=== PATIENT | female | born 1980 | race African-American/Black ===

== ENCOUNTER 2017-02-24 12:02 | Emergency (ER) | payer OTHER ==
[2017-02-24 12:32] VITALS: BP 114/73; PULSE 71; TEMP 98.9; BMI 34.6
--- NOTE | 2017-02-24 13:28 | PDOC ---
History of Present Illness - General Chief Complaint: Pain Stated Complaint: PAIN Time Seen by Provider: 02/24/17 13:03 - History of Present Illness Initial Comments: 02/24/17 13:06 He is a 36-year-old female , who presents to emergency department today complaining of right hip pain. Patient states that she's had this hip pain for approximately 1 month now. She had her last child approximately 3 months ago. Patient states that while walking up stairs she gets a sharp pain. She is concerned that there is something wrong with her hip and would like an x-ray at this time. Denies balance issues, gait change, weakness in the leg, numbness, tingling. Past History - Past Medical History Allergies/Adverse Reactions: Allergies Allergy/AdvReac Type Severity Reaction Status Date / Time No Known Allergies Allergy Verified 02/24/17 12:30 Home Medications: Ambulatory Orders NK [No Known Home Medication] 02/24/17 - Psycho/Social/Smoking Cessation Hx Suicidal Ideation: No Smoking History: Current every day smoker Number of Cigarettes Smoked Daily: 1 Information on smoking cessation initiated: No Review of Systems - Review of Systems Able to Perform ROS?: Yes Is the patient limited Czech proficient: No Constitutional: No: Chills, Fever, Weakness Musculoskeletal: Yes: Joint Pain (R hip), Joint Stiffness (R hip). No: Muscle Pain, Muscle Weakness Neurological: No: Numbness, Tingling, Weakness, Unsteady Gait *Physical Exam - Vital Signs Last Vital Signs Temp Pulse Resp BP Pulse Ox 98.9 F 71 18 114/73 98 02/24/17 12:30 02/24/17 12:30 02/24/17 12:30 02/24/17 12:30 02/24/17 12:30 - Physical Exam General Appearance: Yes: Nourished, Appropriately Dressed. No: Apparent Distress Vascular Pulses: Dorsalis-Pedis (R): 2+, Doralis-Pedis (L): 2+ Extremity: positive: Normal Capillary Refill, Normal Inspection, Normal Range of Motion, Tender (Tender to palpation of the right hip. The tenderness does not extend into the groin region.). negative: Other (Negative Angel's test.) Integumentary: positive: Normal Color, Dry, Warm. 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 Patient states that this pain has been going on for approximately 1 month now and would like an x-ray at this time will x-ray her right hip to rule out fracture or any other pathology. Most likely diagnosis is possible tendinitis. We'll refer to orthopedic doctor. 02/24/17 15:26 Patient states that she cannot wait for her x-ray results. She has to get to a doctor's appointment for one of her children. Patient needs to leave and states she does not want to wait. 02/24/17 15:58 Pt. wants to leave. Signing out AMA. X-ray results are not back at this time. Patient states that she will call to find out the results of her imaging. *DC/Admit/Observation/Transfer Diagnosis at time of Disposition: AMA - Signed out against medical advice - Discharge Dispostion Disposition: AGAINST MEDICAL ADVICE - Referrals Referrals: Chase Sy MD [Primary Care Provider] -
[2017-02-24 14:54] LABS: URINE APPEARANCE CLEAR; URINE BILIRUBIN NEGATIVE (NEGATIVE); URINE COLOR LTYELLOW; URINE GLUCOSE (UA) NEGATIVE (NEGATIVE); URINE KETONE NEGATIVE (NEGATIVE); URINE LEUK ESTERASE NEGATIVE (NEGATIVE); URINE NITRITE NEGATIVE (NEGATIVE); URINE PROTEIN NEGATIVE (NEGATIVE); URINE UROBILINOGEN NEGATIVE E.U./dl (0.2-1.0)
[2017-02-24 15:11] LABS: URINE BLOOD 1+ (NEGATIVE)
[2017-02-24 15:12] LABS: URINE RBC 1 /hpf (0-3)
== END 2017-02-24 16:32 | disposition left against medical advice (07) ==
LOC: JERFT 12:02
DX: M25.551 Pain in right hip (principal)
CPT/HCPCS: 73523-TC; 81003; 81015; 84703; 99281-25

== ENCOUNTER 2017-09-22 01:22 | Emergency (ER) | payer OTHER ==
[2017-09-22 01:48] VITALS: BP 122/66; PULSE 75; TEMP 98.6; BMI 31.3
--- NOTE | 2017-09-22 02:41 | PDOC ---
History of Present Illness - General Chief Complaint: Chest Pain Stated Complaint: PAIN Time Seen by Provider: 09/22/17 02:37 History Source: Patient - History of Present Illness Initial Comments: 09/22/17 02:52 37 year old female with chest pain worse with movement. patient reports picking up daughter unsure of pulling muscle. denies cough, chest congestion, NVD, abdominal pain. denies pmhx Past History - Past Medical History Allergies/Adverse Reactions: Allergies Allergy/AdvReac Type Severity Reaction Status Date / Time No Known Allergies Allergy Verified 09/22/17 01:45 Home Medications: Ambulatory Orders Ibuprofen [Motrin -] 600 mg PO QID PRN #21 tablet 09/22/17 COPD: No - Suicide/Smoking/Psychosocial Hx Smoking History: Current some day smoker Number of Cigarettes Smoked Daily: 3 Information on smoking cessation initiated: No Hx Alcohol Use: No Drug/Substance Use Hx: No Review of Systems - Review of Systems Able to Perform ROS?: Yes Is the patient limited Telugu proficient: No Constitutional: No: Symptoms Reported, See HPI, Chills, Diaphoresis, Fever, Loss of Appetite, Malaise, Night Sweats, Weakness, Weight Stable, Unintentional Wgt. Loss, Unexplained wgt Loss, Other HEENTM: No: Symptoms Reported, See HPI, Eye Pain, Blurred Vision, Tearing, Recent change in vision, Double Vision, Cataracts, Ear Pain, Ocular Prothesis, Ear Discharge, Nose Pain, Nose Congestion, Tinnitus, Nose Bleeding, Hearing Loss , Throat Pain, Throat Swelling, Mouth Pain, Dental Problems, Difficulty Swallowing, Mouth Swelling, Other Respiratory: No: Symptoms reported, See HPI, Cough, Orthopnea, Shortness of Breath, SOB with Exertion, SOB at Rest, Stridor, Wheezing, Productive cough, Hemoptysis, Other Cardiac (ROS): Yes: Chest Pain. No: Symptoms Reported, See HPI, Edema, Irregular Heart Rate, Lightheadedness, Palpitations, Syncope, Chest Tightness, Other ABD/GI: No: Symptoms Reported, See HPI, Abdominal Distended, Abd. Pain w/ defecation, Blood Streaked Bowels, Constipated, Diarrhea, Difficulty Swallowing , Nausea, Poor Appetite, Poor Fluid Intake, Rectal Bleeding, Vomiting, Indigestion, Abdominal cramping, Tarry Stools, Other *Physical Exam - Vital Signs Last Vital Signs Temp Pulse Resp BP Pulse Ox 98.6 F 75 14 122/66 99 09/22/17 01:45 09/22/17 01:45 09/22/17 01:45 09/22/17 01:45 09/22/17 01:45 - Physical Exam General Appearance: Yes: Appropriately Dressed Respiratory/Chest: positive: Chest Tender (anterior chest tender to touch), Lungs Clear, Normal Breath Sounds Cardiovascular: positive: Regular Rhythm, Regular Rate Gastrointestinal/Abdominal: positive: Normal Bowel Sounds, Soft Extremity: positive: Normal Capillary Refill, Normal Range of Motion Integumentary: positive: Normal Color, Dry, Warm Neurologic: positive: Fully Oriented ED Treatment Course - RADIOLOGY Radiology Studies Ordered: Category Date Time Status CHEST PA & LAT [RAD] Stat Radiology 09/22/17 02:51 Taken - Medications Given in the ED: ED Medications Discontinued Medications Generic Name Dose Route Start Last Admin Trade Name Freq PRN Reason Stop Dose Admin Ibuprofen 800 mg 09/22/17 02:51 09/22/17 03:07 Motrin - PO 09/22/17 02:52 800 mg ONCE ONE Administration *DC/Admit/Observation/Transfer Diagnosis at time of Disposition: Chest pain, musculoskeletal - Discharge Dispostion Disposition: HOME - Prescriptions Prescriptions: Ibuprofen [Motrin -] 600 mg PO QID PRN #21 tablet PRN Reason: Pain - Referrals Referrals: STAFF,NOT ON [Primary Care Provider] - - Patient Instructions Printed Discharge Instructions: DI for Chest Pain Additional Instructions: take ibuprofen every 6 hours as needed for pain follow up with your doctor as soon as possible. return to the ER if symptoms worsen. - Post Discharge Activity
[2017-09-22] MEDS ORDERED: IBUPROFEN 400 MG TABLET (FP) PO ONE ×3 (02:51→02:57)
== END 2017-09-22 04:42 | disposition home or self-care (01) ==
LOC: JER 01:22
DX: R07.89 Other chest pain (principal)
CPT/HCPCS: 71046-TC; 99282-25

== ENCOUNTER 2017-10-29 09:23 | Emergency (ER) | payer OTHER ==
[2017-10-29 09:29] VITALS: BP 136/82; PULSE 95; TEMP 98.4; BMI 30.7
--- NOTE | 2017-10-29 10:28 | PDOC ---
History of Present Illness - General Chief Complaint: Respiratory Stated Complaint: cough, sore throat Time Seen by Provider: 10/29/17 09:59 History Source: Patient Exam Limitations: No Limitations - History of Present Illness Initial Comments: 10/29/17 10:23 Patient is a 37-year-old female, no significant medical history currently on no medication reports moist productive cough, sputum days. Tactile temperature. No nausea vomiting or diarrhea. Past Medical History: [Denies]. Allergies: No known allergies Medications: None] Family History: Non-contributory Social History: Denies smoking, alcohol use, or IVDU Review of Systems GENERAL/CONSTITUTIONAL: [No fever or chills. No weakness. No weight change.] HEAD, EYES, EARS, NOSE AND THROAT: [No change in vision. No ear pain or discharge. No sore throat. ] CARDIOVASCULAR: [No chest pain or shortness of breath.] RESPIRATORY: [Moist cough, wheezing, or hemoptysis.] GASTROINTESTINAL: [No nausea, vomiting, diarrhea or constipation. No rectal bleeding.] GENITOURINARY: [No dysuria, frequency, or change in urination.] MUSCULOSKELETAL: [No joint or muscle swelling or pain. No neck or back pain.] SKIN AND BREASTS: [No rash or easy bruising.] NEUROLOGIC: [No headache, vertigo, loss of consciousness, or loss of sensation.] PSYCHIATRIC: [No depression or anxiety.] ENDOCRINE: [No increased thirst. No abnormal weight change.] HEMATOLOGIC/LYMPHATIC: [No anemia, easy bleeding, or history of blood clots.] ALLERGIC/IMMUNOLOGIC: [No hives or skin allergy. No latex allergy.] Physical Exam: GENERAL: [The patient is awake, alert, and fully oriented, in no acute distress. ] EYES: [Pupils equal, round and reactive to light, extraocular movements intact, sclera anicteric, conjunctiva clear.] ENT: [Ears normal, nares patent, oropharynx clear without exudates. Moist mucous membranes. No uvula deviation] NECK: [Normal range of motion, supple without lymphadenopathy, JVD, or masses.] LUNGS: [Breath sounds are equal, rhonchi , no wheezing. No crackles] HEART: [Regular rate and rhythm, normal S1 and S2 without murmur, rub or gallop. ] ABDOMEN: [Soft, nontender, normoactive bowel sounds. No guarding, no rebound. No masses. No bruising or abrasions] MUSCULOSKELETAL: [Normal range of motion, no edema. No clubbing or cyanosis. No cords, erythema, or tenderness. No CVA Tenderness with fist.] NEUROLOGICAL: [Cranial nerves II through XII grossly intact. Normal speech, normal gait.] SKIN: [Warm, Dry, normal turgor, no rashes or lesions noted.] Past History - Past Medical History Allergies/Adverse Reactions: Allergies Allergy/AdvReac Type Severity Reaction Status Date / Time No Known Allergies Allergy Verified 10/29/17 10:20 Home Medications: Ambulatory Orders Ibuprofen [Motrin -] 600 mg PO QID PRN #21 tablet 09/22/17 Albuterol Sulfate Inhaler - [Ventolin HFA Inhaler -] 1 - 2 inh PO Q4H #1 inhaler 10/29/17 Azithromycin [Zithromax 250mg Tablets -] 250 mg PO UTDICT #6 tab 10/29/17 COPD: No - Immunization History Immunization Up to Date: Yes - Suicide/Smoking/Psychosocial Hx Smoking History: Current some day smoker Number of Cigarettes Smoked Daily: 5 Information on smoking cessation initiated: No Hx Alcohol Use: No Drug/Substance Use Hx: No *Physical Exam - Vital Signs Last Vital Signs Temp Pulse Resp BP Pulse Ox 98.4 F 95 H 18 136/82 99 10/29/17 09:26 10/29/17 09:26 10/29/17 09:26 10/29/17 09:26 10/29/17 09:26 Medical Decision Making - Medical Decision Making 10/29/17 10:26 A/P : Patient with cough, tactile fever, rhonchi bilateral. Wuill DC on albuterol inhaler, azithromycin. Follow up with PMD if fever, or cough persists. *DC/Admit/Observation/Transfer Diagnosis at time of Disposition: Cough - Discharge Dispostion Condition at time of disposition: Stable Admit: No - Prescriptions Prescriptions: Albuterol Sulfate Inhaler - [Ventolin HFA Inhaler -] 1 - 2 inh PO Q4H #1 inhaler Azithromycin [Zithromax 250mg Tablets -] 250 mg PO UTDICT #6 tab - Referrals - Patient Instructions Printed Discharge Instructions: DI for Acute Bronchitis Additional Instructions: Keep head of bed elevated 45 when sleeping Albuterol every 4 hours as needed Cool air humidifier at night Motrin for fever greater than 101 Followup in the primary care doctor's office in 2 days for evaluation. If any respiratory distress, increased cough, inability to drink, increased wheezing please return immediately to emergency department. - Post Discharge Activity Forms/Work/School Notes: Back to Work
== END 2017-10-29 10:48 | disposition home or self-care (01) ==
LOC: JERFT 09:23 → JER 09:23
DX: J20.9 Acute bronchitis, unspecified (principal)
CPT/HCPCS: 99282-25

== ENCOUNTER 2018-12-14 22:14 | Emergency (ER) | payer OTHER ==
[2018-12-14 22:25] VITALS: BP 106/76; PULSE 75; TEMP 98.4
[2018-12-14] MEDS ORDERED: ACETAMINOPHEN 650 MG/20.3 ML ORAL SOLUTION (CUPS) PO ONE (23:06)
--- NOTE | 2018-12-14 23:29 | PDOC ---
History of Present Illness - General Chief Complaint: Chest Pain Stated Complaint: CHEST PAIN Time Seen by Provider: 12/14/18 22:46 History Source: Patient Exam Limitations: No Limitations - History of Present Illness Initial Comments: 12/14/18 23:24 38 yo female pmh current smoker (3 cigarettes per day) presents to the ED for non exertional right sided CP. 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 Pain is non exertional, non radiating, made worse with movement of right arm and palpation to right upper chest, denies back pain, SOB, diaphoresis, N/V/F/C, arm numbness/weakness, calf tenderness, recent travel, fx of heart disease. Past History - Past Medical History Allergies/Adverse Reactions: Allergies Allergy/AdvReac Type Severity Reaction Status Date / Time No Known Allergies Allergy Verified 12/14/18 22:25 Home Medications: Ambulatory Orders Ibuprofen [Motrin -] 600 mg PO QID PRN #21 tablet 09/22/17 Albuterol Sulfate Inhaler - [Ventolin Hfa Inhaler -] 1 - 2 inh PO Q4H #1 inhaler 10/29/17 Azithromycin [Zithromax 250mg Tablets -] 250 mg PO UTDICT #6 tab 10/29/17 Azithromycin [Zithromax 250mg Tablets -] 250 mg PO UTDICT #6 tab 10/29/17 COPD: No - Immunization History Immunization Up to Date: Yes - Suicide/Smoking/Psychosocial Hx Smoking History: Current some day smoker Have you smoked in the past 12 months: Yes Number of Cigarettes Smoked Daily: 3 Information on smoking cessation initiated: No Hx Alcohol Use: No Drug/Substance Use Hx: No Review of Systems - Review of Systems Constitutional: No: Chills, Fever Respiratory: No: Shortness of Breath Cardiac (ROS): Yes: Chest Pain. No: Edema, Lightheadedness, Palpitations ABD/GI: No: Constipated, Diarrhea, Nausea, Vomiting Musculoskeletal: No: Back Pain Integumentary: No: Rash Neurological: No: Numbness, Tingling, Weakness *Physical Exam - Vital Signs Last Vital Signs Temp Pulse Resp BP Pulse Ox 98.4 F 75 18 106/76 99 12/14/18 22:22 12/14/18 22:22 12/14/18 22:22 12/14/18 22:22 12/14/18 22:22 - Physical Exam General Appearance: Yes: Nourished, Appropriately Dressed. No: Apparent Distress HEENT: positive: EOMI Neck: positive: Supple. negative: Carotid bruit, Tender lateral, Tender midline Respiratory/Chest: positive: Lungs Clear, Normal Breath Sounds. negative: Accessory Muscle Use, Rapid RR, Crackles, Rales, Rhonchi, Stridor, Wheezing Cardiovascular: positive: Regular Rhythm, Regular Rate, S1, S2, Other ( reprodicible CP with palpation over right pec minor and with ROM of right arm). negative: Edema, JVD, Murmur Vascular Pulses: Dorsalis-Pedis (R): 4+, Doralis-Pedis (L): 4+ Gastrointestinal/Abdominal: positive: Flat, Soft. negative: Pulsatile Mass, Distended, Guarding, Rebound, Tenderness Musculoskeletal: positive: Normal Inspection. negative: CVA Tenderness Extremity: positive: Normal Capillary Refill, Normal Inspection, Normal Range of Motion Integumentary: positive: Normal Color, Dry, Warm Neurologic: positive: Fully Oriented, Alert, Normal Mood/Affect, Normal Response , Motor Strength 5/5 Medical Decision Making - Medical Decision Making 38 yo female pmh current smoker (3 cigarettes per day) presents to the ED for non exertional right sided CP. 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 Pain is non exertional, non radiating, made worse with movement of right arm and palpation to right upper chest, denies back pain, SOB, diaphoresis, N/V/F/C, arm numbness/weakness, calf tenderness, recent travel, fx of heart disease. vitals wnl AOX3, NAD, non toxic appearing CP reproducible with palpation to right pec minor and with increased ROM in overhead motion right arm Preg test neg EKG NSR without ST changes CXR negative for acute path or fractures Given Motrin which relieved pain Pt presented 1 year ago with similar symptoms, found to be MSK pain which is likely the diagnosis today as well PT is safe for DC home with PCP f/u and strict return precautions *DC/Admit/Observation/Transfer Diagnosis at time of Disposition: Chest pain Qualifiers: Chest pain type: unspecified Qualified Code(s): R07.9 - Chest pain, unspecified - Discharge Dispostion Disposition: HOME Condition at time of disposition: Good Decision to Admit order: No - Referrals Referrals: [facility] – [place], [place] [facility] [place] [Provider Group] - Patient Instructions Printed Discharge Instructions: DI for Atypical Chest Pain, DI for Muscle Strain Additional Instructions: Please see the primary doctor referred to you within the next 48 hours. Rest and ice/heat the right arm and pectoral region for the next 3-5 days along with over the counter NSAID medication for pain relief. Return to the ER for new or concerning symptoms including but not limited to: severe chest pain, numbness with weakness into your arm, high fevers. Thank you - Post Discharge Activity
[2018-12-14] MEDS ORDERED: ACETAMINOPHEN 325 MG TABLET (FP) ONE (23:37)
--- NOTE | 2018-12-14 23:48 | PDOC ---
Attending Attestation - HPI HPI: The patient is a 38 year old female (current smoker- 3 cigarettes per day), with no significant PMH, who presents to the emergency department today complaining of right-sided chest wall pain for one day. Patient notes she began feeling the chest pain approximately one hour to arrival. 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 Pain is exacerbated with moving the neck and when applying pressure to the right upper extremity. Patient denies any breast pain or discharge from the nipples. The patient denies chest pain, shortness of breath, headache and dizziness. Denies fever, chills, nausea, vomit, diarrhea and constipation. Denies dysuria, frequency, urgency and hematuria. Allergies: NKA Past surgical history: None reported Social history: Current smoker (3 cigarettes per day) 12/15/18 00:16 - Physicial Exam PE: GENERAL: Awake, alert, and fully oriented, in no acute distress HEAD: No signs of trauma EYES: PERRLA, EOMI, sclera anicteric, conjunctiva clear ENT: Auricles normal inspection, hearing grossly normal, nares patent, oropharynx clear without exudates. Moist mucosa NECK: Normal ROM, supple, no lymphadenopathy, JVD, or masses CHEST: +Reproducible right chest wall tenderness. LUNGS: Breath sounds equal, clear to auscultation bilaterally. No wheezes, and no crackles HEART: Regular rate and rhythm, normal S1 and S2, no murmurs, rubs or gallops ABDOMEN: Soft, nontender, normoactive bowel sounds. No guarding, no rebound. No masses EXTREMITIES: +Ranging right arm reproduces pain. +Pushing on right chest wall reproduces pain. Full range of motion, no edema. No clubbing or cyanosis. No cords, erythema. NEUROLOGICAL: Cranial nerves II through XII grossly intact. Normal speech, normal gait SKIN: Warm, Dry, normal turgor, no rashes or lesions noted. 12/15/18 00:16 - Medical Decision Making Documentation prepared by SONYA Babb, acting as medical appointment clerk for Corrie Armando DO. 12/15/18 00:16 <Kassy Vaca - Last Filed: 12/15/18 00:16> - Resident Resident Name: William Gonzalez - ED Attending Attestation I have performed the following: I have examined & evaluated the patient, The case was reviewed & discussed with the resident, I agree w/resident's findings & plan, Exceptions are as noted - Medical Decision Making 12/14/18 23:48 I, Dr. Corrie Armando, DO, attest that this document has been prepared under my direction and personally reviewed by me in its entirety. I further attest, that it accurately reflects all work, treatment, procedures and medical decision -making performed by me. 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
[2018-12-15] MEDS ORDERED: IBUPROFEN 600 MG TABLET (FP) PO ONE ×2 (00:08→00:11)
--- NOTE | 2018-12-15 11:57 | EKG ---
Test Reason : Blood Pressure : / mmHG Vent. Rate : 059 BPM Atrial Rate : 059 BPM P-R Int : 164 ms QRS Dur : 080 ms QT Int : 398 ms P-R-T Axes : 069 026 037 degrees QTc Int : 394 ms SINUS BRADYCARDIA WITH SINUS ARRHYTHMIA POSSIBLE LEFT ATRIAL ENLARGEMENT BORDERLINE ECG NO PREVIOUS ECGS AVAILABLE Confirmed by MILAD SUMNER, EARL ([id number]) on 12/15/2018 11:57:34 AM Referred By: Confirmed By:EARL STINSON MD
== END 2018-12-15 01:47 | disposition home or self-care (01) ==
LOC: JER 22:14
DX: R07.9 Chest pain, unspecified (principal)
CPT/HCPCS: 71046-TC-FY; 84703; 93005; 93010; 99282-25

== ENCOUNTER 2019-02-19 12:24 | Emergency (ER) | payer OTHER ==
[2019-02-19 12:41] VITALS: BP 108/60; PULSE 70; TEMP 98.1; BMI 25.0
[2019-02-19] MEDS ORDERED: AZITHROMYCIN 250 MG TABLET PO ONE (13:45)
--- NOTE | 2019-02-19 13:50 | PDOC ---
History of Present Illness - General Chief Complaint: Pain Stated Complaint: Wants STD testing Time Seen by Provider: 02/19/19 13:41 - History of Present Illness Initial Comments: 02/19/19 13:49 38-year-old female presents for evaluation of concern of a broken condom with a new sexual partner. Sexual encounter occurred about 48 hours ago. She is concerned about gonorrhea and chlamydia. Past History - Past Medical History Allergies/Adverse Reactions: Allergies Allergy/AdvReac Type Severity Reaction Status Date / Time No Known Allergies Allergy Verified 02/19/19 12:41 Home Medications: Ambulatory Orders NK [No Known Home Medication] 02/19/19 COPD: No - Immunization History Immunization Up to Date: Yes - Suicide/Smoking/Psychosocial Hx Smoking History: Never smoked Have you smoked in the past 12 months: Yes Number of Cigarettes Smoked Daily: 3 Information on smoking cessation initiated: No Hx Alcohol Use: No Drug/Substance Use Hx: No Review of Systems - Review of Systems Constitutional: No: Fever : No: Dysuria, Discharge *Physical Exam - Vital Signs Last Vital Signs Temp Pulse Resp BP Pulse Ox 98.1 F 70 18 108/60 100 02/19/19 12:38 02/19/19 12:38 02/19/19 12:38 02/19/19 12:38 02/19/19 12:38 - Physical Exam Comments: 02/19/19 13:49 HEAD: NC/AT EYES: Conjuntiva clear MS: Full ROM in all joints without edema NEUROLOGIC: No gross sensory or motor deficits, NVID SKIN: Normal color and temperature no lesions or rashes Medical Decision Making - Medical Decision Making 02/19/19 13:48 Treatment options discussed. Patient wants to be treated for gonorrhea and chlamydia. She refused HIV testing and prophylactic treatment she also wants to be tested for syphilis. [facility] follow-up referral given. *DC/Admit/Observation/Transfer Diagnosis at time of Disposition: Possible exposure to STD - Discharge Dispostion Disposition: HOME Condition at time of disposition: Stable Decision to Admit order: No - Referrals Referrals: [facility] [Provider Group] - Patient Instructions Printed Discharge Instructions: Chlamydia: The Silent STD, How to Detect and Treat STDs, Facts About Sexually Transmitted Infections Additional Instructions: Today he was treated for gonorrhea and chlamydia. He refused HIV testing. Your also tested for syphilis as well as gonorrhea and chlamydia. Return to the emergency room should he have any further issues he may follow-up with the [facility] for further evaluation and treatment. Should any of your results be positive we will call you. You refused HIV testing and prophylactic treatment. - Post Discharge Activity
[2019-02-19] MEDS ORDERED: AZITHROMYCIN 500 MG TABLET ONE (13:56)
== END 2019-02-19 14:13 | disposition home or self-care (01) ==
LOC: JERFT 12:24
DX: Z20.2 Contact with and (suspected) exposure to infections with a predominantly sexual mode of transmission (principal); Z11.3 Encounter for screening for infections with a predominantly sexual mode of transmission
CPT/HCPCS: 36415; 86593; 87491; 87591; 96372; 99281-25

== ENCOUNTER 2019-11-05 16:45 | Emergency (ER) | payer OTHER ==
[2019-11-05 17:02] VITALS: BP 123/72; PULSE 90; TEMP 99.9; BMI 34.8
--- NOTE | 2019-11-05 18:18 | PDOC ---
History of Present Illness - General Chief Complaint: Cold Symptoms Stated Complaint: CHEST PAIN,HEADACHE Time Seen by Provider: 11/05/19 17:26 History Source: Patient Exam Limitations: Clinical Condition - History of Present Illness Initial Comments: 11/05/19 18:15 Patient presented complaining of 2-day history of persisting cough, nasal congestion, midsternal chest pain from coughing, tactile fevers, chills and body aches. Patient reported taking vydp-fah-didsrsz cough medication from the [employer] [facility] without improvement. Denies recent travel or sick contact. Patient has not taken anything for fevers. Patient requests she just need pain medication and go home Is this a multiple visit Asthma Patient?: No Timing/Duration: other (2 days) Past History - Past Medical History Allergies/Adverse Reactions: Allergies Allergy/AdvReac Type Severity Reaction Status Date / Time No Known Allergies Allergy Verified 11/05/19 17:02 Home Medications: Ambulatory Orders Benzonatate [Tessalon Pearls -] 100 mg PO Q8H PRN #21 capsule 11/05/19 Ipratropium [place] 2 spray NS BID PRN 5 Days #1 spray 11/05/19 Methylprednisolone [Medrol Dose Carlos] 4 mg PO ASDIR #21 tablet 11/05/19 COPD: No - Immunization History Immunization Up to Date: Yes - Psycho Social/Smoking Cessation Hx Smoking History: Never smoked Have you smoked in the past 12 months: Yes Number of Cigarettes Smoked Daily: 3 Hx Alcohol Use: No Drug/Substance Use Hx: No Review of Systems - Review of Systems Able to Perform ROS?: Yes Is the patient limited Tajik proficient: No Constitutional: Yes: Chills, Fever (tactile fever), Malaise HEENTM: Yes: Symptoms Reported, See HPI, Nose Congestion. No: Eye Pain, Blurred Vision, Tearing, Recent change in vision, Double Vision, Cataracts, Ear Pain, Ocular Prothesis, Ear Discharge, Nose Pain, Tinnitus, Nose Bleeding, Hearing Loss, Throat Pain, Throat Swelling, Mouth Pain, Dental Problems, Difficulty Swallowing, Mouth Swelling, Other Respiratory: Yes: Symptoms reported, See HPI, Cough. No: Orthopnea, Shortness of Breath, SOB with Exertion, SOB at Rest, Stridor, Wheezing, Productive cough, Hemoptysis, Other Cardiac (ROS): Yes: Symptoms Reported, See HPI, Chest Pain (mid-sternal chest pain from cough). No: Edema, Irregular Heart Rate, Lightheadedness, Palpitations, Syncope, Chest Tightness, Other ABD/GI: No: Symptoms Reported, Nausea, Vomiting All Other Systems: Reviewed and Negative *Physical Exam - Vital Signs Last Vital Signs Temp Pulse Resp BP Pulse Ox 99.9 F H 90 18 123/72 100 11/05/19 17:00 11/05/19 17:00 11/05/19 17:00 11/05/19 17:00 11/05/19 17:00 - Physical Exam 11/05/19 18:14 GENERAL: Well developed, well nourished. Awake and alert. No acute distress. HEENT: Normocephalic, atraumatic. PERRLA, EOMI. No conjunctival pallor. Sclera are non-icteric. Moist mucous membranes. Oropharynx is clear. NECK: Supple. Full ROM. CARDIOVASCULAR: Moderate reproducible midsternal chest wall pain. Regular rate and rhythm. No murmurs, rubs, or gallops. Distal pulses are 2+ and symmetric. PULMONARY: No evidence of respiratory distress. Lungs clear to auscultation bilaterally. No wheezing, rales or rhonchi. ABDOMINAL: Soft. Non-tender. Non-distended. No rebound or guarding. No organomegaly. Normoactive bowel sounds. MUSCULOSKELETAL Normal range of motion at all joints. SKIN: Warm and dry. Normal capillary refill. No rashes. No jaundice. No cyanosis NEUROLOGICAL: Alert, awake, appropriate. Gait is normal without ataxia. PSYCHIATRIC: Cooperative. Good eye contact. Appropriate mood General Appearance: Yes: Nourished, Appropriately Dressed. No: Apparent Distress ED Treatment Course - RADIOLOGY Radiology Studies Ordered: Category Date Time Status CHEST PA & LAT [RAD] Stat Radiology 11/05/19 18:06 Taken Medical Decision Making - Medical Decision Making 11/05/19 18:17 Patient presented complaining of 2-day history of persisting cough, nasal congestion, midsternal chest pain from coughing, tactile fevers, chills and body aches. Patient reported taking gqky-ikd-[id number] cough medication from the [facility] without improvement. Denies recent travel or sick contact. Patient has not taken anything for fevers. Patient requests she just need pain medication and go home Exam significant for moderate reproducible midsternal chest wall tenderness with normal cardio and lung exam. Patient very hysterical and coughing throughout exam and report chest pain while coughing. Patient afebrile. Symptoms likely viral URI with costochondritis from cough. EKG done shows normal sinus rhythm. Chest x-ray ordered to rule out acute chest pathology 11/05/19 18:51 Chest x-ray shows no acute abnormality. Toradol 30 mg IM ordered for costochondritis. Patient stable for discharge on Tessalon [place] as needed for cough and Atrovent nasal spray for congestion will add Medrol pack for anti- inflammatory effect to help with costochondritis with strict follow-up Discharge - Discharge Information Problems reviewed: Yes Clinical Impression/Diagnosis: Cough, Costochondral chest pain, URI with cough and congestion Condition: Stable Disposition: HOME - Admission No - Additional Discharge Information Prescriptions: Benzonatate [Tessalon Pearls -] 100 mg PO Q8H PRN #21 capsule PRN Reason: Cough Ipratropium [place] 2 spray NS BID PRN 5 Days #1 spray PRN Reason: nasal congestion Methylprednisolone [Medrol Dose [place]] 4 mg PO ASDIR #21 tablet - Follow up/Referral Referrals: Chase Sy MD [Primary Care Provider] - - Patient Discharge Instructions Patient Printed Discharge Instructions: DI for Viral Upper Respiratory Infection -- Adult Additional Instructions: Your symptoms likely from upper respiratory infection. Your EKG and chest x- ray was normal. Your chest pain is likely from chest wall pain from coughing. Take prescribed medication as prescribed for cough and congestion. Increase fluid intake. Come back to emergency room if worsening chest pain with shortness of breath and weakness - Post Discharge Activity
[2019-11-05] MEDS ORDERED: KETOROLAC TROMETHAMINE 30 MG/1 ML VIAL IM ONE (18:21)
[2019-11-05] MEDS ORDERED: KETOROLAC TROMETHAMINE 30 MG/1 ML VIAL ONE (18:29)
--- NOTE | 2019-11-06 09:40 | EKG ---
Test Reason : Blood Pressure : / mmHG Vent. Rate : 091 BPM Atrial Rate : 091 BPM P-R Int : 150 ms QRS Dur : 082 ms QT Int : 350 ms P-R-T Axes : 062 016 029 degrees QTc Int : 430 ms NORMAL SINUS RHYTHM NORMAL ECG WHEN COMPARED WITH ECG OF 14-DEC-2018 22:22, VENT. RATE HAS INCREASED BY 32 BPM Confirmed by Nik Llanos MD ([id number]) on 11/06/2019 9:40:39 AM Referred By: Confirmed By:Nik Llanos MD
== END 2019-11-05 18:46 | disposition home or self-care (01) ==
LOC: JERFT 16:45
PROC: 3E0233Z Introduction of Anti-inflammatory into Muscle, Percutaneous Approach (ICD-10-PCS; principal; 2019-11-05)
DX: J06.9 Acute upper respiratory infection, unspecified (principal); M94.0 Chondrocostal junction syndrome [Tietze]
CPT/HCPCS: 71046-TC-FY; 93005; 93010; 96372; 99284-25

== ENCOUNTER 2019-11-06 10:57 | Emergency (ER) | payer OTHER ==
[2019-11-06 11:12] VITALS: BMI 32.3
[2019-11-06] MEDS ORDERED: ACETAMINOPHEN 1000 MG/100 ML VIAL (NON FORMULARY) IVPB ONE (11:45)
[2019-11-06] MEDS ORDERED: SODIUM CHLORIDE 0.9% 500 ML INFUS.BAG IV ONE (11:45)
[2019-11-06] MEDS ORDERED: ACETAMINOPHEN INJECTION 100 ML IVPB ONE (11:56)
[2019-11-06 12:16] LABS: BASO % 0.2 % (0-2.0); EOS % 0.6 % (0-4.5); HEMATOCRIT 35.7 % (32.4-45.2); HEMOGLOBIN 11.8 GM/dL (10.7-15.3); LYMPH % 4.8 % (8-40); MCH 28.5 pg (25.7-33.7); MCHC 33.2 g/dl (32.0-36.0); MEAN CELL VOLUME 85.7 fl (80-96); MEAN PLT VOLUME 8.2 fl (7.5-11.1); MONO % 6.6 % (3.8-10.2); NEUT % 87.8 % (42.8-82.8); PLATELET COUNT 351 K/MM3 (134-434); RBC 4.16 M/mm3 (3.60-5.2); RDW 14.2 % (11.6-15.6); WHITE BLOOD COUNT 7.6 K/mm3 (4.0-10.0)
[2019-11-06 12:47] LABS: ALBUMIN 4.1 g/dl (3.4-5.0); BILIRUBIN,TOTAL 0.3 mg/dL (0.2-1); BLOOD UREA NITROGEN 10.8 mg/dL (7-18); CREATININE 0.8 mg/dL (0.55-1.3); TOT PROT 7.3 g/dl (6.4-8.2)
--- NOTE | 2019-11-06 13:30 | EKG ---
Test Reason : Blood Pressure : / mmHG Vent. Rate : 103 BPM Atrial Rate : 103 BPM P-R Int : 142 ms QRS Dur : 084 ms QT Int : 332 ms P-R-T Axes : 067 010 030 degrees QTc Int : 434 ms SINUS TACHYCARDIA OTHERWISE NORMAL ECG WHEN COMPARED WITH ECG OF 05-NOV-2019 17:29, NO SIGNIFICANT CHANGE WAS FOUND Confirmed by Nik Llanos MD ([id number]) on 11/06/2019 1:30:08 PM Referred By: Confirmed By:Nik Llanos MD
[2019-11-06] MEDS ORDERED: KETOROLAC TROMETHAMINE 60 MG/2 ML VIAL IVPUSH ONE (13:37)
[2019-11-06] MEDS ORDERED: KETOROLAC TROMETHAMINE 30 MG/1 ML VIAL ONE (13:42)
[2019-11-06 15:08] VITALS: BP 115/71; PULSE 98; TEMP 99.6
--- NOTE | 2019-11-06 15:13 | PDOC ---
History of Present Illness - General Chief Complaint: Cold Symptoms Stated Complaint: DIFFICULTY BREATHING Time Seen by Provider: 11/06/19 11:23 - History of Present Illness Initial Comments: 11/06/19 15:11 39-year-old female with flu symptoms x1 day she denies comorbidities. Past History - Past Medical History Allergies/Adverse Reactions: Allergies Allergy/AdvReac Type Severity Reaction Status Date / Time No Known Allergies Allergy Verified 11/06/19 11:12 Home Medications: Ambulatory Orders Oseltamivir Phosphate [Tamiflu] 75 mg PO BID #10 capsule 11/06/19 COPD: No - Immunization History Immunization Up to Date: Yes - Psycho Social/Smoking Cessation Hx Smoking History: Never smoked Have you smoked in the past 12 months: Yes Number of Cigarettes Smoked Daily: 3 Information on smoking cessation initiated: No Hx Alcohol Use: No Drug/Substance Use Hx: No Review of Systems - Review of Systems Constitutional: Yes: Chills, Diaphoresis, Fever, Malaise, Night Sweats HEENTM: Yes: Nose Congestion Respiratory: Yes: Cough Neurological: Yes: Headache *Physical Exam - Vital Signs Last Vital Signs Temp Pulse Resp BP Pulse Ox 99.6 F 98 H 18 115/71 98 11/06/19 15:07 11/06/19 15:07 11/06/19 13:00 11/06/19 15:07 11/06/19 15:07 - Physical Exam 11/06/19 15:11 GENERAL: The patient is awake, alert, and fully oriented, in no acute distress. HEAD: Normal with no signs of trauma. EYES: sclera anicteric, conjunctiva clear. ENT: Ears normal tympanic membranes normal oropharynx clear uvula midline NECK: Normal range of motion LUNGS: Breath sounds equal, clear to auscultation bilaterally. No wheezes, and no crackles. HEART: S1 and S2 without murmur, rub or gallop. ABDOMEN: Soft, nontender, normoactive bowel sounds. No guarding, no rebound. No masses. EXTREMITIES: Normal range of motion, no edema. No clubbing or cyanosis. No cords, erythema, or tenderness. NEUROLOGICAL: Cranial nerves II through XII grossly intact. PSYCH: Normal mood, normal affect. SKIN: Warm, Dry, normal turgor, no rashes or lesions noted. ED Treatment Course - LABORATORY CBC & Chemistry Diagram: 11/06/19 12:02 11/06/19 12:02 - ADDITIONAL ORDERS Additional order review: Laboratory Results 11/06/19 12:02 Sodium 138 Potassium 4.0 Chloride 107 Carbon Dioxide 24 Anion Gap 7 L BUN 10.8 Creatinine 0.8 Est GFR (CKD-EPI)AfAm 107.64 Est GFR (CKD-EPI)NonAf 92.87 Random Glucose 109 H Calcium 9.0 Total Bilirubin 0.3 AST 19 ALT 20 Alkaline Phosphatase 84 Total Protein 7.3 Albumin 4.1 11/06/19 12:02 RBC 4.16 MCV 85.7 MCHC 33.2 RDW 14.2 MPV 8.2 Neutrophils % 87.8 H Lymphocytes % 4.8 L Monocytes % 6.6 Eosinophils % 0.6 Basophils % 0.2 - RADIOLOGY Radiology Studies Ordered: Category Date Time Status CHEST - PA [RAD] Stat Radiology 11/06/19 11:45 Completed - Medications Given in the ED: ED Medications Discontinued Medications Generic Name Dose Route Start Last Admin Trade Name Freq PRN Reason Stop Dose Admin Acetaminophen 1,000 mg 11/06/19 11:45 11/06/19 11:57 Ofirmev Injection - IVPB 11/06/19 11:46 1,000 mg ONCE ONE Administration Ketorolac Tromethamine 30 mg 11/06/19 13:37 11/06/19 13:54 Toradol Injection - IVPUSH 11/06/19 13:38 30 mg ONCE ONE Administration Sodium Chloride 1,000 ml 11/06/19 11:45 11/06/19 11:57 Normal Saline - IV 11/06/19 11:46 1,000 ml ONCE ONE Administration Medical Decision Making - Medical Decision Making 11/06/19 15:11 Negative chest x-ray. Patient feeling better after fluid IV Tylenol and Toradol flu positive will treat accordingly discussed this with the patient. She will follow-up with her primary care physician maintain hydration with Pedialyte and return to the emergency room should she experience worsening of symptoms Discharge - Discharge Information Problems reviewed: Yes Clinical Impression/Diagnosis: Influenza Condition: Stable Disposition: HOME - Admission No - Additional Discharge Information Prescriptions: Oseltamivir Phosphate [Tamiflu] 75 mg PO BID #10 capsule - Follow up/Referral Referrals: Charlie Figueroa MD [Staff Physician] - - Patient Discharge Instructions Additional Instructions: Tylenol Motrin as directed for fever and body aches. Return to the emergency room for worsening symptoms and without fail follow-up with your primary care physician in 1 to 2 days for further evaluation and treatment options. Please take the Tamiflu as directed. - Post Discharge Activity
== END 2019-11-06 15:35 | disposition home or self-care (01) ==
LOC: JERFT 10:57
PROC: 3E033NZ Introduction of Analgesics, Hypnotics, Sedatives into Peripheral Vein, Percutaneous Approach (ICD-10-PCS; principal; 2019-11-06)
PROC: 3E0333Z Introduction of Anti-inflammatory into Peripheral Vein, Percutaneous Approach (ICD-10-PCS; 2019-11-06)
DX: J09.X2 Influenza due to identified novel influenza A virus with other respiratory manifestations (principal)
CPT/HCPCS: 36415; 71045-TC-FY; 80053; 85025; 87804; 93005; 93010; 96374; 96375; 99285-25; J0131